=== PATIENT | female | born 1980 | race African-American/Black ===

== ENCOUNTER 2022-10-06 11:55 | Emergency (ER) | payer OTHER ==
[~2022-10-06] VITALS: Ht 172.7 cm; Wt 79.0 kg
[2022-10-06] MEDS ORDERED: KETOROLAC 30MG/ML VIAL IV STA (13:33)
[2022-10-06 13:56] VITALS: BP 139/66
[2022-10-06] MEDS ORDERED: IOHEXOL-300 100 ML BOTTLE ONE (14:24)
[2022-10-06] MEDS ORDERED: CEFTRIAXONE 2 G PREMIX 50 ML IV ONE (14:45)
[2022-10-06] MEDS ORDERED: AMPICILLIN SOD/SULBACTAM NA 3 G in SODIUM CHLORIDE 0.9% 100 ML IV SCH (14:45)
[2022-10-06] MEDS ORDERED: SODIUM CHLORIDE 0.9% 1,000 ML IV ONE (14:45)
[2022-10-06] MEDS ORDERED: DEXAMETHASONE 10 MG/ML VIAL IV ONE (14:45)
[2022-10-06] MEDS ORDERED: CLINDAMYCIN 600 MG in DEXTROSE 5% WATER 50 ML IV ONE (14:45)
[2022-10-06 15:54] LABS: BASOPHILS % 0.2 % (0.0-2.0); HEMATOCRIT. 38.7 % (36.0-48.0); HEMOGLOBIN. 13.1 g/dL (12.0-16.0); LYMPHOCYTES % 8.2 % (20.0-50.0); MEAN CORPUSCULAR HEMOGLOBIN 28.8 pg (28.0-32.0); MEAN CORPUSCULAR VOLUME 85.4 fL (81.0-99.0); MEAN PLATELET VOLUME 8.2 fl (7.4-10.4); NEUTROPHILS % 84.6 % (40.0-76.0); PLATELET 345 x1000/uL (130-400); RED BLOOD CELL COUNT 4.53 mill/uL (4.2-5.4); RED CELL DISTRIBUTION WIDTH 16.4 % (11.6-14.6)
[2022-10-06 16:07] LABS: CHLORIDE 97 mEq/L (98-107)
[2022-10-06 16:14] LABS: INR 1.2; PROTHROMBIN TIME 12.4 sec (9.6-11.0)
[2022-10-08 15:09] LABS: HIV SCREEN 4G Non Reactive (Non Reactive)
== END 2022-10-06 18:07 | disposition short-term general hospital (02) ==
LOC: ER 12:17
DX: J36 Peritonsillar abscess (principal); Z20.822 Contact with and (suspected) exposure to COVID-19
CPT/HCPCS: 36415; 70491; 80053; 81025; 85025; 85610; 87389; 87426; 96361; 96365; 96375; 99285; C9803; J0295; J1100; J1885; J7030; J7050; Q9967; J0696; J3490; J7060

== ENCOUNTER 2022-12-30 01:59 | Emergency (ER) | payer MEDICARE, OTHER ==
[~2022-12-30] VITALS: Ht 170.2 cm; Wt 65.0 kg
[2022-12-30] MEDS ORDERED: NAP5EC PO (03:55)
[2022-12-30 04:00] VITALS: BP 126/62
[2022-12-30] MEDS ORDERED: IBUPROFEN 600MG TABLET PO ONE (04:00)
== END 2022-12-30 04:51 | disposition home or self-care (01) ==
LOC: ER 01:59
DX: M54.50 Low back pain, unspecified (principal)
CPT/HCPCS: 99283

== ENCOUNTER 2023-01-20 01:00 | Emergency (ER) | payer MEDICARE, OTHER ==
[~2023-01-20] VITALS: Ht 167.6 cm; Wt 83.5 kg
[~2023-01-20 01:00] MED LIST: NAP5EC PO
[2023-01-20 01:14] VITALS: BP 123/84
[2023-01-20] MEDS ORDERED: ACETAMINOPHEN 325MG TABLET PO ONE (01:45)
== END 2023-01-20 02:10 | disposition home or self-care (01) ==
LOC: ER 01:32
DX: M54.50 Low back pain, unspecified (principal)
CPT/HCPCS: 99283